=== PATIENT | male | born 1950 | race Caucasian/White ===

== ENCOUNTER 2020-04-12 04:52 | Emergency (ER) | payer MEDICARE, OTHER ==
[~2020-04-12] VITALS: Ht 177.8 cm; Wt 68.0 kg
[2020-04-12 04:57] VITALS: Ht 177.8 cm; Wt 68.0 kg
[2020-04-12] MEDS ORDERED: FLOMAX0.4 MG PO (04:59)
[2020-04-12] MEDS ORDERED: ANASTROZOLE (04:59)
[2020-04-12] MEDS ORDERED: NULEV0.125 MG PO (05:00)
[2020-04-12] MEDS ORDERED: PROSCAR5 MG PO (05:00)
[2020-04-12] MEDS ORDERED: ADCIRCA20 MG PO (05:01)
[2020-04-12] MEDS ORDERED: [UNRECOGNIZED DRUG - OTHER] (05:02)
[2020-04-12 06:09] LABS: BILIRUBIN NEGATIVE (NEGATIVE); GLUCOSE NEGATIVE (NEGATIVE); KETONE NEGATIVE (NEGATIVE); NITRITE NEGATIVE (NEGATIVE); UROBILINOGEN NORMAL (NORMAL)
[2020-04-12 06:51] VITALS: BP 112/74
== END 2020-04-12 06:52 | disposition home or self-care (01) ==
LOC: D.ER 04:52
PROVIDERS: Family Medicine
DX: N40.1 Benign prostatic hyperplasia with lower urinary tract symptoms (principal); R33.8 Other retention of urine